=== PATIENT | male | born 1990 | race Caucasian/White ===

== ENCOUNTER 2017-11-21 00:26 | Inpatient (IN) ==
[2017-11-21] MEDS ORDERED: Acetaminophen 325 MG Tablet PO PRN (06:31)
[2017-11-21] MEDS ORDERED: Vancomycin Consult Pharmacy OTHER PRN (06:33)
[2017-11-21] MEDS: Sod Chloride 0.9% Inj 1,000 ML IV.CONT SCH ×3 (09:47→20:04)
--- NOTE | 2017-11-21 10:25 | P.HP ---
History of Present Illness Primary Care Physician: No Primary Care Physician Chief Complaint: Fever History of Present Illness: 27-year-old male with known history of cerebral palsy, scoliosis, HIV who originally presented to the emergency department because of left eye conjunctivitis and painful right finger. During that ER visit the patient did have stab incision done with immediate removal of pus of the paronychia. Patient was prescribed doxycycline and erythromycin eyedrops. Patient was discharged home, however they were not able to get the antibiotics and eyedrops. Patient family indicates that he did develop fever of 103 so they came back to the emergency department. Laboratory studies were performed which did indicate leukocytosis of 18,000, lactic acidosis and source of infection. Patient met criteria for sepsis. Because of that it was recommended by the ER physician that the patient be admitted for further evaluation and management. Patient was started on empirical antibiotics to include vancomycin and cefepime. Upon evaluating patient he has remained afebrile during his stay in the hospital. He is very eager to go home. He denies any headache, chest pain , abdominal pain, nausea, vomiting, diarrhea, cough, congestion, rhinorrhea. - Diagnosis (1) Sepsis Inpatient Certification: I certify that the inpatient services were ordered in accordance with Medicare regulations governing the order. This includes certification that hospital inpatient services are reasonable and necessary and in the case of services not specified as inpatient-only under 42 CFR 419.22(n), that they are appropriately provided as inpatient services in accordance to with the 2-midnight benchmark under 43 CFR 412.3(e) Estimated Total Length of Stay (Days): 2 Plans for Post Hospital Care: Home Review of Systems All other systems reviewed negative except as stated in HPI Constitutional: Reports fever(s) Eyes: Reports discharge Skin/Breast: Reports nail changes PMFSH - History History Provided By: Patient, Family Member - Medical History Medical History: Medical History (Last Reviewed 11/21/17 @ 10:24 by PAOLA Velasquez) Scoliosis (Acute) Cerebral palsy (Acute) Lung mass (Acute) HIV (human immunodeficiency virus infection) (Acute) - Surgical History Surgical History: Surgical History (Last Reviewed 11/21/17 @ 10:24 by PAOLA Velasquez) Hx of release of tendon (Acute) - Family History Family History: Family History (Last Updated 11/21/17 @ 10:25 by PAOLA Velasquez) Father History of HIV infection Mother History of HIV infection - Tobacco History Second Hand Smoke Exposure: No Smoking Status: Never smoker - Alcohol History How Often Do You Have a Drink Containing Alcohol: Never - Substance Use History Substance History: No History of Abuse Medications and Allergies Active Medications: Active Medications Acetaminophen (Tylenol) 650 mg PO Q4H PRN PRN Reason: Temp > 100.4 Emtricitabine/Tenofovir (Truvada 200/300 Mg) 1 tab PO DAILY [facility] Sodium Chloride (Ns Inj) 1,000 mls @ 100 mls/hr IV.CONT .Q10H [facility] Last Admin: 11/21/17 09:47 Dose: 100 mls/hr Cefepime HCl 2,000 mg/ Sodium (Chloride) 100 mls @ 200 mls/hr IV.SIG Q8H [facility] Last Admin: 11/21/17 09:55 Dose: 200 mls/hr Non-Formulary Medication (Darunavir-Cobicistat [Prezcobix]) 1 tab PO DAILY [facility] Ondansetron HCl (Zofran Inj) 4 mg IV.PUSH Q6H PRN PRN Reason: NAUSEA OR VOMITING Pharmacy Profile Note (Vancomycin Consult Pharmacy) 1 each OTHER UNSCH PRN PRN Reason: Pharmacy to dose Ritonavir (Norvir) 100 mg PO DAILY [facility] Allergies Allergy/AdvReac Type Severity Reaction Status Date / Time ciprofloxacin [From Cipro] Allergy Hives Verified 11/21/17 03:40 vancomycin Allergy Hives Verified 11/21/17 03:40 Home Medications Medication Instructions Recorded Confirmed Type darunavir-cobicistat [Prezcobix] 1 tab PO DAILY 11/20/17 11/21/17 History emtricitabine-tenofovir (TDF) 1 tab PO DAILY 11/20/17 11/21/17 History [Truvada] ritonavir [Norvir] 100 mg PO DAILY 11/20/17 11/21/17 History Exam Vital signs: Vital Signs 11/21/17 06:15 11/21/17 08:00 Temperature 96.4 F L 97.9 F Pulse Rate 114 H 101 H Respiratory Rate 20 16 Blood Pressure 111/76 105/63 Pulse Oximetry 97 98 Narrative: GENERAL: Small stature, atrophy of the bilateral lower extremities, well- nourished, in no acute distress. alert and orientated HEENT: Head is normocephalic without any lesions or masses noted. Facial features are symmetric. Eyes: Pupils equal round reactive to light. Extraocular muscles are intact. Conjunctivae were clear. Oropharyngeal: Pharynx without any erythema edema. Tongue is midline without deviation. Buccal mucosa is moist without any masses or lesions NECK: Supple without any masses. Trachea midline no deviation. No JVD, no bruits are appreciated CARDIAC: Regular rhythm, regular rate. S1/S2 are heard. No murmurs gallops or rubs. LUNGS: Clear to auscultation bilaterally. No wheeze, rhonchi or rales. No use of accessory muscles on inspiration or expiration. ABDOMEN: Soft, nontender. Nondistended. Bowel sounds heard in all 4 quadrants. No organomegaly or masses. Negative rebound, negative guarding EXTREMITIES: No edema, pulses are equal bilaterally. No cyanosis or clubbing NEUROLOGY: Mood and affect appear appropriate. Cranial nerves II through XII grossly intact. Moving upper extremities bilaterally. Bilateral lower extremities appear to have significant muscle wasting. Patient moves them with his upper extremities Caprini VTE Risk Assessment Caprini VTE Risk Assessment: No/Low Risk (score <= 1) Caprini Risk Assessment Model: Point Value = 1 Point Value = 2 Point Value = 3 Point Value = 5 Age 41-60 Minor surgery BMI > 25 kg/m2 Swollen legs Varicose veins or History of unexplained or recurrent spontaneous Oral contraceptives or hormone replacement Sepsis (< 1 month) Serious lung disease, including pneumonia (< 1 month) Abnormal pulmonary function Acute myocardial infarction Congestive heart failure (< 1 month) History of inflammatory bowel disease Medical patient at bed rest Age 61-74 Arthroscopic surgery Major open surgery (> 45 min) Laparoscopic surgery (> 45 min) Malignancy Confined to bed (> 72 hours) Immobilizing plaster cast Central venous access Age >= 75 History of VTE Family history of VTE Factor V Leiden Prothrombin [id number] Lupus anticoagulant Anticardiolipin antibodies Elevated serum homocysteine Heparin-induced thrombocytopenia Other congenital or acquired thrombophilia Stroke (< 1 month) Elective arthroplasty Hip, pelvis, or leg fracture Acute spinal cord injury (< 1 month) Prophylaxis Regimen: Total Risk Factor Score Risk Level Prophylaxis Regimen 0-1 Low Early ambulation 2 Moderate Order ONE of the following: *Sequential Compression Device (SCD) *Heparin 5000 units SQ BID 3-4 Higher Order ONE of the following medications: *Heparin 5000 units SQ TID *Enoxaparin/Lovenox 40 mg SQ daily (WT < 150 kg, CrCl > 30 mL/min) *Enoxaparin/Lovenox 30 mg SQ daily (WT < 150 kg, CrCl > 10-29 mL/min) *Enoxaparin/Lovenox 30 mg SQ BID (WT < 150 kg, CrCl > 30 mL/min) AND/OR *Sequential Compression Device (SCD) 5 or more Highest Order ONE of the following medications: *Heparin 5000 units SQ TID (Preferred with Epidurals) *Enoxaparin/Lovenox 40 mg SQ daily (WT < 150 kg, CrCl > 30 mL/min) *Enoxaparin/Lovenox 30 mg SQ daily (WT < 150 kg, CrCl > 10-29 mL/min) *Enoxaparin/Lovenox 30 mg SQ BID (WT < 150 kg, CrCl > 30 mL/min) AND *Sequential Compression Device (SCD) Assessment and Plan - Assessment (1) Sepsis Code(s): A41.9 - Sepsis, unspecified organism Status: Acute - Plan Sepsis -Met criteria on presentation with febrile illness, leukocytosis, lactic acidosis, paronychia, conjunctivitis, patient high risk due to immunosuppression from antivirals -Blood cultures are pending -Urinalysis was unremarkable -Patient started on vancomycin and cefepime empirically Conjunctivitis -Continue erythromycin eyedrops HIV -Continue antiviral medications DVT prevention -Subcutaneous heparin
[2017-11-21 12:04] LABS: Baso # (Auto) 0.1 th/mm3 (0.0-0.2); Baso % (Auto) 0.8 % (0.0-2.0); Eos # (Auto) 0.2 th/mm3 (0.0-0.4); Eos % (Auto) 1.6 % (0.0-4.0); Hematocrit 42.6 % (39.0-51.0); Hemoglobin 14.5 gm/dL (13.0-17.0); Lymph # (Auto) 3.1 th/mm3 (1.0-4.8); Lymph % (Auto) 32.4 % (9.0-44.0); Mean Corpuscular HGB Conc 34.1 % (32.0-36.0); Mean Corpuscular Hemoglobin 29.3 pg (27.0-34.0); Mean Corpuscular Volume 85.9 fL (80.0-100.0); Mean Platelet Volume 9.7 fL (7.0-11.0); Mono # (Auto) 0.8 th/mm3 (0.0-0.9); Neut # (Auto) 5.5 th/mm3 (1.8-7.7); Neut % (Auto) 57.2 % (16.0-70.0); Platelet Count 206 th/mm3 (150-450); Red Blood Count 4.96 mil/mm3 (4.50-5.90); Red Cell Distribution Width 12.1 % (11.6-17.2); White Blood Count 9.7 th/mm3 (4.0-11.0)
[2017-11-21 12:16] LABS: Chloride 113 meq/L (98-107); Potassium 3.5 meq/L (3.5-5.1); Sodium 146 meq/L (136-145)
[2017-11-21 12:19] LABS: Anion Gap 7 meq/L (5-15); Blood Urea Nitrogen 10 mg/dL (7-18); Calcium 8.1 mg/dL (8.5-10.1); Carbon Dioxide 25.7 meq/L (21.0-32.0); Glucose,Random 113 mg/dL (74-106)
[2017-11-21 12:22] LABS: Glomerular Filtration Rate Greater Than 89 mL/min (>89)
[2017-11-21] MEDS: Erythromycin 0.5% Opth Oint 3.5 GM Tube EACH EYE SCH ×3 (12:28→21:27)
[2017-11-21] MEDS: Heparin - SQ 10,000 UNITS/ML Vial SQ SCH ×2 (12:28→21:27)
[2017-11-21 20:21] VITALS: RESP 20
[2017-11-22] MEDS: Sod Chloride 0.9% Inj 1,000 ML IV.CONT SCH ×2 (04:44→05:17)
[2017-11-22 07:26] VITALS: O2SAT 94
[2017-11-22] MEDS ORDERED: DARUNAVIR COBICISTAT PO SCH (09:00)
--- NOTE | 2017-11-22 09:00 | P.PN ---
Subjective Interval history: 27-year-old male who is seen and examined today in follow-up for sepsis. Patient is doing rather well. During his stay in the hospital he has been afebrile. No signs of sepsis. Patient is very eager to go home. Patient denies any new complaints. Vital signs are stable. Patient remains afebrile. Physical Exam Vital signs: Vital Signs 11/21/17 12:00 11/21/17 16:00 11/21/17 20:00 Temperature 97.8 F 98.0 F 99 F Pulse Rate 102 H 101 H 100 H Respiratory Rate 16 17 20 Blood Pressure 110/58 L 107/62 121/56 L Pulse Oximetry 98 98 98 11/22/17 00:00 11/22/17 07:25 Temperature 96.9 F L 98.7 F Pulse Rate 103 H 114 H Respiratory Rate 20 20 Blood Pressure 145/81 H 114/68 Pulse Oximetry 97 94 L Intake & Output 11/21/17 11/22/17 11/22/17 18:59 06:59 18:59 Intake Total 200 / 200 2820 / 2820 Balance 200 / 200 2820 / 2820 Weight 49.3 kg Intake: IV 200 / 200 2100 / 2100 NS Inj 1,000 ML @ 100 mls/hr IV 1999 / 1999 .CONT .Q10H [facility] Rx#:[id number] Maxipime Inj 2,000 MG In NS Inj 200 / 200 100 / 100 100 ML @ 200 mls/hr IV.SIG Q8H [facility] Rx#:[id number] Oral 720 / 720 Other: # Voids 3 # Bowel Movements 0 1 Narrative: GENERAL: Small stature, atrophy of the bilateral lower extremities, well- nourished, in no acute distress. alert and orientated HEENT: Head is normocephalic without any lesions or masses noted. Facial features are symmetric. Eyes: Extraocular muscles are intact. Conjunctivae were clear. NECK: Supple without any masses. Trachea midline no deviation. No JVD, CARDIAC: Regular rhythm, regular rate. S1/S2 are heard. No murmurs gallops or rubs. LUNGS: Clear to auscultation bilaterally. No wheeze, rhonchi or rales. No use of accessory muscles on inspiration or expiration. ABDOMEN: Soft, nontender. Nondistended. Bowel sounds heard in all 4 quadrants. No organomegaly or masses. Negative rebound, negative guarding EXTREMITIES: No edema, pulses are equal bilaterally. No cyanosis or clubbing NEUROLOGY: Mood and affect appear appropriate. Cranial nerves II through XII grossly intact. Bilateral lower extremities appear to have significant muscle wasting. Patient moves them with his upper extremities Results - Labs CBC & Chem 7: 11/22/17 10:25 11/22/17 10:25 Laboratory Results - last 24 hr 11/21/17 11/21/17 11/21/17 11:50 11:50 11:50 CBC w Diff Auto diff final WBC 9.7 RBC 4.96 Hgb 14.5 Hct 42.6 MCV 85.9 MCH 29.3 MCHC 34.1 RDW 12.1 Plt Count 206 MPV 9.7 Neut % (Auto) 57.2 Lymph % (Auto) 32.4 [place] % (Auto) 8.0 Eos % (Auto) 1.6 Baso % (Auto) 0.8 Neut # (Auto) 5.5 Lymph # (Auto) 3.1 [place] # (Auto) 0.8 Eos # (Auto) 0.2 Baso # (Auto) 0.1 WBC Differential . Differential Comment . Sodium 146 H Potassium 3.5 Chloride 113 H D Carbon Dioxide 25.7 Anion Gap 7 BUN 10 Creatinine 0.77 Estimated GFR Greater than 89 Random Glucose 113 H Lactic Acid 1.6 Calcium 8.1 L D Assessment and Plan - Assessment (1) Sepsis Code(s): A41.9 - Sepsis, unspecified organism Status: Inactive - Plan Sepsis, resolved -Met criteria on presentation with febrile illness, leukocytosis, lactic acidosis, paronychia, conjunctivitis, patient high risk due to immunosuppression from antivirals -Blood cultures have remained negative -Urinalysis was unremarkable -Chest x-ray did not indicate any acute abnormality -We will up CBC and lactic acid level within 10 hours already indicates resolution of leukocytosis and lactic acidosis. -Patient started on vancomycin and cefepime empirically -Patient and family are eager to be discharged. Given that the patient was no longer septic within 10 hours of admission, patient significant improvement. Discussed with them that the blood cultures remain negative possibly discharge home today. -Given that patient cultures have remained negative, patient not show any signs of any infection, patient clinically stable we will discharge patient home in stable condition with outpatient follow-up Conjunctivitis -Continue erythromycin eyedrops HIV -Continue antiviral medications DVT prevention -Subcutaneous heparin Discharge Planning: Discharge home in stable condition Activity: Ad ankur. Diet: Regular diet Medication per medication reconciliation Follow-up with primary medical doctor in 1 week
[2017-11-22] MEDS: Erythromycin 0.5% Opth Oint 3.5 GM Tube EACH EYE SCH (09:18)
[2017-11-22] MEDS: Heparin - SQ 10,000 UNITS/ML Vial SQ SCH (09:20)
[2017-11-22 10:55] LABS: Baso % (Auto) 0.2 % (0.0-2.0); Eos # (Auto) 0.4 th/mm3 (0.0-0.4); Eos % (Auto) 4.6 % (0.0-4.0); Hematocrit 42.6 % (39.0-51.0); Hemoglobin 14.4 gm/dL (13.0-17.0); Lymph # (Auto) 2.5 th/mm3 (1.0-4.8); Lymph % (Auto) 32.8 % (9.0-44.0); Mean Corpuscular HGB Conc 33.8 % (32.0-36.0); Mean Corpuscular Volume 85.5 fL (80.0-100.0); Mean Platelet Volume 9.3 fL (7.0-11.0); Mono # (Auto) 0.7 th/mm3 (0.0-0.9); Mono % (Auto) 8.5 % (0.0-8.0); Neut # (Auto) 4.1 th/mm3 (1.8-7.7); Neut % (Auto) 53.9 % (16.0-70.0); Platelet Count 205 th/mm3 (150-450); Red Blood Count 4.98 mil/mm3 (4.50-5.90); Red Cell Distribution Width 12.8 % (11.6-17.2); White Blood Count 7.7 th/mm3 (4.0-11.0)
[2017-11-22 11:06] LABS: Chloride 109 meq/L (98-107); Potassium 3.2 meq/L (3.5-5.1); Sodium 143 meq/L (136-145)
[2017-11-22 11:09] LABS: Anion Gap 8 meq/L (5-15); Blood Urea Nitrogen 7 mg/dL (7-18); Calcium 8.5 mg/dL (8.5-10.1); Carbon Dioxide 25.8 meq/L (21.0-32.0); Glucose,Random 130 mg/dL (74-106)
[2017-11-22 11:12] VITALS: BP 118/64; PULSE 110; TEMP 98.6
[2017-11-22 11:13] LABS: Glomerular Filtration Rate Greater Than 89 mL/min (>89)
== END 2017-11-22 13:39 | disposition home or self-care (01) ==
LOC: PHEDDLT 06:12 → PH3 06:13
PROVIDERS: ADMIT Hospitalist; ATTEND Hospitalist